=== PATIENT | male | born 1985 | race Caucasian/White ===

== ENCOUNTER 2018-11-19 15:00 | Emergency (ER) | payer MEDICAID, OTHER ==
[~2018-11-19] VITALS: Ht 172.7 cm; Wt 90.9 kg
[~2018-11-19 15:00] MED LIST: AMBI5TAB; OXYC80TA14; PROZ20CA
[2018-11-19 16:45] VITALS: BP 137/86
== END 2018-11-19 17:36 | disposition home or self-care (01) ==
LOC: M ED 15:00
DX: F43.0 Acute stress reaction (principal); Z72.0 Tobacco use

== ENCOUNTER → 2019-08-24 | Outpatient (CLI) | payer OTHER ==
[~2019-08-24] MED LIST changes: +DITR5TAB PO; +SILD25TA PO
--- NOTE | 2019-08-24 10:42 | REP ---
CT right ankle without contrast: History: Nondisplaced fracture of the right lower limb. No comparison radiographs. Check status of mortise. Findings: CT study is acquired through overlying cast material. There is an obliquely oriented well-aligned distal fibular diaphyseal fracture with slight comminution . Addition, there is a well aligned coronal a oriented fracture through the posterior tibial "malleolus ". No measurable step-off is seen on sagittal multiplanar re-formation images in the tibial plafond. The talar dome is intact. No medial malleolar fracture is appreciated. No tarsal fracture is seen. A fairly large os trigonum is noted and there is a os naviculare. Impression: Distal fibular and posterior tibial malleolar fractures as above. Electronically Signed by Bhaskar Beavers MD 08/24/2019 10:33 A
== END ==
LOC: M RAD 07:15
PROVIDERS: ATTEND Physician Assistant Surgical
DX: S82.844A Nondisplaced bimalleolar fracture of right lower leg, initial encounter for closed fracture (principal); X58.XXXA Exposure to other specified factors, initial encounter; Y93.9 Activity, unspecified

== ENCOUNTER → 2019-09-18 | Day surgery (SDC) | payer OTHER ==
[~2019-09-18] VITALS: Ht 172.7 cm; Wt 92.1 kg
[~2019-09-18] MED LIST changes: +ADDE20TA PO; +COLA100C5 PO; +IBUP-1114 PO; +KLON1TAB PO; +LR 1,000 ML IV ONE; +MEDICAL MARIJUANA; +NS 1,000 ML IV ONE; +TRAZ-257 PO
[2019-09-18 07:55] VITALS: BP 140/84
== END | disposition home or self-care (01) ==
LOC: M OPP 07:29
PROVIDERS: ATTEND Internal Medicine Gastroenterology
DX: K62.5 Hemorrhage of anus and rectum (principal); Z53.8 Procedure and treatment not carried out for other reasons

== ENCOUNTER → 2020-05-24 | Outpatient (CLI) | payer OTHER ==
[~2020-05-24] MED LIST changes: -LR 1,000 ML IV ONE; -NS 1,000 ML IV ONE
--- NOTE | 2020-05-24 10:32 | REPVR ---
PROCEDURE INFORMATION: Exam: CT Maxillofacial Without Contrast, Sinus Exam date and time: 05/24/2020 10:12 AM Age: 35 years old Clinical indication: Maxilla pain; Additional info: Chronic pansinusitis TECHNIQUE: Imaging protocol: CT Maxillofacial without contrast. Focus on the sinuses. Radiation optimization: All CT scans at this facility use at least one of these dose optimization techniques: automated exposure control; mA and/or kV adjustment per patient size (includes targeted exams where dose is matched to clinical indication); or iterative reconstruction. COMPARISON: No relevant prior studies available. FINDINGS: Frontal sinuses: Mucosal disease opacifies the bilateral frontal recesses. Mild mucosal thickening in the inferior left maxillary sinus. Ethmoid air cells: Mild bilateral ethmoid mucosal thickening. Sphenoid sinuses: Mild left sphenoid sinus mucosal thickening. Mucosal thickening extends along the left sphenoid ostium which remains patent. The right sphenoid sinus and sphenoid ostium are clear and patent. Maxillary sinuses: Trace bilateral maxillary sinus mucosal thickening. Small left maxillary sinus retention cysts or polyps. The ostiomeatal units are patent. There is a small right Emelyn cell. Nasal cavity/Septum: Partridge right deviation of the cartilaginous nasal septum which contacts the right inferior turbinate. Partridge left deviation of the bony nasal septum which contacts the left inferior turbinate. There is right deja bullosa. No nasal cavity masses. Orbital cavity: Orbits are normal. Globes are unremarkable. Bones/joints: No acute fracture. There is an old left orbital floor fracture. Soft tissues: Unremarkable. IMPRESSION: 1. Mild, chronic pansinusitis. 2. Mucosal disease opacifies the frontal recesses. Electronically signed by: Perla Browne On 05/24/2020 10:32:53 AM
== END ==
LOC: M RAD 09:32
PROVIDERS: ATTEND Otolaryngology
DX: J30.9 Allergic rhinitis, unspecified (principal)

== ENCOUNTER → 2021-03-18 | Outpatient (CLI) | payer OTHER ==
[~2021-03-18] MED LIST changes: +ARNU1INH3 INH; +CETI-24 PO; +FLON1SPR; +OMEP40CA4 PO; +ZIPR60CA11 PO; +ZOLO25TA PO
== END ==
LOC: M LABSMTC 09:55
PROVIDERS: ATTEND Anesthesiology
DX: Z20.828 Contact with and (suspected) exposure to other viral communicable diseases (principal); Z11.59 Encounter for screening for other viral diseases

== ENCOUNTER 2021-03-23 06:50 | Day surgery (SDC) | payer OTHER ==
[~2021-03-23] VITALS: Ht 172.7 cm; Wt 102.5 kg
[~2021-03-23 06:50] MED LIST changes: +NS 1,000 ML IV ONE
[2021-03-23] MEDS ORDERED: fentaNYL 100 MCG/2 ML INJECTION (J3010) As Ordered ONE (08:25)
[2021-03-23] MEDS ORDERED: LIDOCAINE 2% 100MG/5ML SDV (FOR ANES.) As Ordered ONE (08:29)
[2021-03-23] MEDS ORDERED: propofoL 200 MG/20 ML VIAL As Ordered ONE (08:29)
[2021-03-23 09:00] VITALS: BP 119/63
--- NOTE | 2021-03-23 10:25 | ROOR ---
Patient Name: True Jean Procedure Date: 03/23/2021 8:06 AM Date of : 1985 Age: 36 Room: [facility] Gender: Male Note Status: Finalized Procedure: Colonoscopy Indications: Hematochezia Providers: Dell Guevara MD Referring MD: GAYLE LUCERO MD Requesting Provider: Medicines: Monitored Anesthesia Care Complications: No immediate complications. Procedure: Pre-Anesthesia Assessment: - Prior to the procedure, a History and Physical was performed, and patient medications and allergies were reviewed. The patient is competent. The risks and benefits of the procedure and the sedation options and risks were discussed with the patient. All questions were answered and informed consent was obtained. Patient identification and proposed procedure were verified by the physician, the nurse and the anesthesiologist in the procedure room. Mental Status Examination: alert and oriented. Airway Examination: normal oropharyngeal airway and neck mobility. Respiratory Examination: clear to auscultation. CV Examination: normal. Prophylactic Antibiotics: The patient does not require prophylactic antibiotics. Prior Anticoagulants: The patient has taken no previous anticoagulant or antiplatelet agents. ASA Grade Assessment: II - A patient with mild systemic disease. After reviewing the risks and benefits, the patient was deemed in satisfactory condition to undergo the procedure. The anesthesia plan was to use monitored anesthesia care (MAC). Immediately prior to administration of medications, the patient was re-assessed for adequacy to receive sedatives. The heart rate, respiratory rate, oxygen saturations, blood pressure, adequacy of pulmonary ventilation, and response to care were monitored throughout the procedure. The physical status of the patient was re-assessed after the procedure. The Colonoscope was introduced through the anus and advanced to the terminal ileum, with identification of the appendiceal orifice and IC valve. The colonoscopy was performed without difficulty. The patient tolerated the procedure well. The quality of the bowel preparation was good. The terminal ileum, ileocecal valve, appendiceal orifice, and rectum were photographed. Scope insertion time was 2 minutes. Scope withdrawal time was 8 minutes. The total duration of the procedure was 12 minutes. Findings: The perianal and digital rectal examinations were normal. The terminal ileum appeared normal. Non-bleeding external and internal hemorrhoids were found during retroflexion. The hemorrhoids were large. Impression: - The examined portion of the ileum was normal. - Non-bleeding external and internal hemorrhoids. - No specimens collected. Recommendation: - Patient has a contact number available for emergencies. The signs and symptoms of potential delayed complications were discussed with the patient. Return to normal activities tomorrow. Written discharge instructions were provided to the patient. - High fiber diet. - Continue present medications. - Preparation H ointment: Apply externally daily. - Repeat colonoscopy in 10 years for screening purposes. - Return to primary care physician. Procedure Code(s): --- Professional --- 85886, Colonoscopy, flexible; diagnostic, including collection of specimen(s) by brushing or washing, when performed (separate procedure) Diagnosis Code(s): --- Professional --- K64.8, Other hemorrhoids K92.1, Melena (includes Hematochezia) CPT copyright 2019 [employer]. All rights reserved. The codes documented in this report are preliminary and upon charging crane operator review may be revised to meet current compliance requirements. Dell Guevara MD Dell Guevara MD 03/23/2021 10:25:11 AM Electronically signed by Dell Guevara MD Number of Addenda: 0 Note Initiated On: 03/23/2021 8:06 AM Estimated Blood Loss: Estimated blood loss: none.
== END 2021-03-23 12:15 | disposition home or self-care (01) ==
LOC: M OPP 06:50
PROVIDERS: ATTEND Internal Medicine Gastroenterology
DX: K92.1 Melena (principal); K64.8 Other hemorrhoids; Z79.899 Other long term (current) drug therapy; F17.210 Nicotine dependence, cigarettes, uncomplicated
CPT/HCPCS: 45378; J3010

== ENCOUNTER → 2022-04-05 | Outpatient (REF) | payer OTHER ==
[~2022-04-05] MED LIST changes: -NS 1,000 ML IV ONE
== END ==
LOC: M SFHCDERM 14:10
PROVIDERS: ATTEND Nurse Practitioner Family
DX: D22.62 Melanocytic nevi of left upper limb, including shoulder (principal)

== ENCOUNTER 2023-09-06 11:41 | Emergency (ER) | payer OTHER ==
[~2023-09-06] VITALS: Ht 172.7 cm; Wt 108.6 kg
[~2023-09-06 11:41] MED LIST changes: -KLON1TAB PO; +KLON1TAB13 PO
[2023-09-06] MEDS: LIDOCAINE 2% W/ EPINEPHRINE 1.7 ML DENTAL INJ SM ONE (14:21)
[2023-09-06] MEDS: BENZOCAINE 20% GEL 9GM TUBE (ANBESOL MAX STRENGTH) TOP ONE (14:22)
[2023-09-06] MEDS ORDERED: ACET500P3 PO (14:44)
[2023-09-06 14:50] VITALS: BP 158/101; TEMP 97.9; O2SAT 97
== END 2023-09-06 14:54 | disposition home or self-care (01) ==
LOC: M ED 11:41
DX: K02.9 Dental caries, unspecified (principal); F41.9 Anxiety disorder, unspecified; F32.A Depression, unspecified; F17.210 Nicotine dependence, cigarettes, uncomplicated; Z91.09 Other allergy status, other than to drugs and biological substances; Z79.1 Long term (current) use of non-steroidal anti-inflammatories (NSAID); Z79.899 Other long term (current) drug therapy